=== PATIENT | female | born 1985 | race Caucasian/White ===

== ENCOUNTER 2016-06-20 13:43 | Emergency (ER) | payer BC, OTHER ==
[~2016-06-20] VITALS: Ht 157.5 cm; Wt 69.7 kg
[~2016-06-20 13:43] MED LIST: MTR600X PO; PRENTAB26 PO
[2016-06-20 13:53] VITALS: BP 143/86; PULSE 87; TEMP 36.7; O2SAT 97; Ht 157.5 cm; Wt 69.7 kg
[2016-06-20] MEDS ORDERED: VEDO1INJ (14:30)
[2016-06-20] MEDS ORDERED: PRT/20 PO (14:30)
[2016-06-20] MEDS ORDERED: HYDR-5688 PO (14:30)
[2016-06-20] MEDS ORDERED: NORGTAB36 PO (14:30)
[2016-06-20] MEDS ORDERED: FOLI5CAP (14:30)
[2016-06-20] MEDS ORDERED: MTH25 PO (14:32)
[2016-06-20] MEDS ORDERED: [UNRECOGNIZED DRUG - CODE] TOP (14:55)
--- NOTE | 2016-06-20 14:56 | EMERGENCY ROOM VISIT NOTE ---
ED Visit Note First contact with patient: 14:07 CHIEF COMPLAINT: Rash on face and neck 2 weeks HISTORY OF PRESENT ILLNESS: Patient is a 31-year-old white female with past medical history significant for hypertension, GERD, Crohn's disease and ulcerative colitis who presents to the emergency department for evaluation of a rash on her face. She states her symptoms started with small, red/white bumps on her forehead about 2 weeks ago. In the last couple of days her symptoms have spread to her chin, behind her ears, neck and upper chest. She states that they're slightly itchy, "burny" but not hot or particularly painful. She has not really done anything for her symptoms. She was not sure what she could apply to it topically and also did not want to make anything worse. She has not been wearing makeup. She denies any changes in her medications, clothes, detergents, cosmetic products, or foods. She reports that about 2 or 3 weeks prior to the onset of her symptoms, she was finally tapered off of her steroids , which she had been on since January. REVIEW OF SYSTEMS: Review of systems as per HPI. All other systems reviewed were negative. 10 systems reviewed. PMH: Electronic medical records are reviewed and summarized as above/below. See Problem List. SOCIAL HISTORY: Patient lives at home with her family. Smoker. PHYSICAL EXAM: Vital Signs: Reviewed Nurse's notes. CONSTITUTIONAL: Patient is a well-appearing 31-year-old white female who is awake and alert and in no acute distress. HEENT: Normocephalic, atraumatic. Pupils equal, round, reactive to light and accommodation. EOMs intact without nystagmus. Sclera are anicteric. Tympanic membranes intact, with normal landmarks. External canals are clear. Oral and nasopharynx are clear. Mucous membranes are moist. INTEGUMENTARY: Examination of patient's rash show a papular, slightly excoriated /skilled over rash, without significant erythema. She does have erythema involving the skin on her neck, chin, and posterior to the ears bilaterally. She has very small, nodular papules, there is no increased warmth, fluctuance or tenderness to palpation. No pustules, vesicles or hemorrhagic lesions are noted. Neck: No lymphadenopathy. EMERGENCY DEPARTMENT COURSE: The patient was seen and evaluated as above. After some research and review of some dermatologic pictures, her presentation appears more consistent with I suspect a corticosteroid induced acne, as her symptoms began after she tapered off of the prednisone which she had been on for several months due to her rheumatologic disease. Rash does not appear consistent with a contact dermatitis or allergic reaction. Does not appear consistent with pustular acne. Certainly something else related to her rheumatologic diseases could be considered. She does have an appointment with her offline editor next week, in addition to her other specialists including gastroenterology and pain management. She was given a prescription to try a topical retinoid to the area. It was not felt that prednisone or antibiotics were appropriate given the presentation and her other medical conditions. If necessary, she was encouraged to follow-up with dermatology for further care and evaluation of her symptoms. Problem List Medical Problems: (1) Ankylosing spondylitis Status: Chronic (2) Chronic pain syndrome Status: Chronic (3) Crohn's disease Status: Chronic (4) GERD (gastroesophageal reflux disease) Status: Chronic (5) Hypertension Nos Status: Chronic Surgical Problems: (1) section Status: Resolved Current/Historical Medications Scheduled Adapalene (Adapalene), 1 APPLN TOP HS Duloxetine Hcl (Cymbalta), 1 CAP PO DAILY Multivit/Min/Iron/Fol Ac/Pren ( Vitamin), 1 TAB PO DAILY Norgestimate-Ethinyl Estradiol (Ortho Tri-Cyclen), 1 TAB PO DAILY Pantoprazole (Protonix), 20 MG PO DAILY Scheduled PRN Hydrocodone/Acetaminophen 5MG/325MG ([place] 5MG/325MG), 1 TAB PO TID PRN for Pain Miscellaneous Medications Clonazepam (Clonazepam) Folic Acid (Folic Acid) Hydrochlorothiazide (Hydrochlorothiazide) Methotrexate (Trexall ), 5 MG PO Vedolizumab (Entyvio) Allergies Coded Allergies: Penicillins (Verified Allergy, Mild, RASH, 06/03/10) Vital Signs Date Time Temp Pulse Resp B/P Pulse Ox O2 Delivery O2 Flow Rate FiO2 06/20/16 13:53 36.7 87 18 143/86 97 Room Air Departure Information Impression Primary Impression: Skin disease due to corticosteroid therapy Prescriptions Adapalene (ADAPALENE) 0.1 % Gel 1 APPLN TOP HS, #45 GM Apply a pea-sized amount of gel the affected areas at bedtime after cleansing. Prov: Selina Gil PA 06/20/16 Referrals Ruth Phillips C.R.N.P (PCP) Patient Instructions A Signature Page, My [facility] Additional Instructions Continue current medications. Adapalene gel : Apply a thin layer to affected area at bedtime. If excessive dryness occur, use every other day. Follow up with your specialists as you have scheduled, and discuss your symptoms with them. Follow up with dermatology if symptoms are not improving.
[2017-03-04] MEDS ORDERED: PANT40TA PO (09:43)
[2017-03-04] MEDS ORDERED: KLN5X PO (14:30)
[2017-03-04] MEDS ORDERED: HYDR25TA5 PO (14:30)
[2017-03-04] MEDS ORDERED: DULO60CA44 PO (14:30)
== END 2016-06-20 15:04 | disposition home or self-care (01) ==
LOC: C.EDB 13:49 → C.EDD 15:04
DX: L98.9 Disorder of the skin and subcutaneous tissue, unspecified (principal); F17.200 Nicotine dependence, unspecified, uncomplicated; K21.9 Gastro-esophageal reflux disease without esophagitis; I10 Essential (primary) hypertension; K50.90 Crohn's disease, unspecified, without complications; G89.4 Chronic pain syndrome

== ENCOUNTER 2016-06-30 08:55 | Emergency (ER) | payer OTHER, BC ==
[~2016-06-30] VITALS: Ht 157.5 cm; Wt 68.5 kg
[~2016-06-30 08:55] MED LIST changes: +FOLI5CAP; +HYDR-5688 PO; +MTH25 PO; -MTR600X PO; +NORGTAB36 PO; +PRT/20 PO; +VEDO1INJ; +[UNRECOGNIZED DRUG - CODE] TOP
[2016-06-30 09:06] VITALS: TEMP 36.8; Ht 157.5 cm; Wt 68.5 kg
[2016-06-30] MEDS ORDERED: METH0.4I3 INJ (09:43)
[2016-06-30] MEDS ORDERED: OPTIRAY 320 IV PRN (10:15)
[2016-06-30 10:27] VITALS: BP 136/83; PULSE 89; O2SAT 99
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
[2017-03-04] MEDS ORDERED: PANT40TA PO (09:43)
[2017-03-04] MEDS ORDERED: KLN5X PO (14:30)
[2017-03-04] MEDS ORDERED: HYDR25TA5 PO (14:30)
[2017-03-04] MEDS ORDERED: DULO60CA44 PO (14:30)
== END 2016-06-30 10:29 | disposition home or self-care (01) ==
LOC: C.EDB 08:56
DX: M54.6 Pain in thoracic spine (principal); R10.9 Unspecified abdominal pain; V44.5XXA Car driver injured in collision with heavy transport vehicle or bus in traffic accident, initial encounter; G89.29 Other chronic pain; K50.90 Crohn's disease, unspecified, without complications; K21.9 Gastro-esophageal reflux disease without esophagitis; F17.200 Nicotine dependence, unspecified, uncomplicated; Z79.899 Other long term (current) drug therapy

== ENCOUNTER → 2016-12-31 | Outpatient (CLI) | payer BC, OTHER ==
[~2016-12-31] MED LIST changes: +BCPILLS PO; +DULO60CA44 PO; -FOLI5CAP; +HYDR25TA5 PO; +KLN5X PO; +METH0.4I3 INJ; -MTH25 PO; +MULT-506 PO; +OXY/15 PO; +PANT40TA PO; -PRT/20 PO; -[UNRECOGNIZED DRUG - CODE] TOP
--- NOTE | 2016-12-31 10:58 | DIAGNOSTIC IMAGING REPORT ---
ABDOMEN COMPLETE (US) CLINICAL HISTORY: 31 years-old Female presenting with AB PAIN, BILATERAL SACROILIITIS. TECHNIQUE: Real-time grayscale and limited color Doppler ultrasound imaging of the abdomen was performed. COMPARISON: None. FINDINGS: Pancreas: Visualized portions of the pancreatic head and body normal. Liver: Normal echogenicity and echotexture. The liver measures 14.8 cm in maximal sagittal dimension. Biliary: No intrahepatic biliary ductal dilatation. Common bile duct measures up to 4 mm in diameter. Gallbladder: Normal in appearance without evidence of gallstones, gallbladder wall thickening, or pericholecystic fluid. Spleen: Normal in echogenicity and size, measuring 11.6 cm in length. Kidneys: Normal in size and echogenicity. Right kidney measures 11 cm, and the left kidney measures 10.4 cm. No hydronephrosis. Vasculature: Visualized portions of the IVC and abdominal aorta normal. Ascites: None. IMPRESSION: Normal abdominal ultrasound. No biliary ductal dilatation. Electronically signed by: Roel Escobedo M.D. 12/31/2016 10:57 AM Dictated Date/Time: 12/31/2016 10:54 AM
== END | disposition home or self-care (01) ==
LOC: C.ULTR 09:52
PROVIDERS: ATTEND Internal Medicine Gastroenterology
DX: K50.10 Crohn's disease of large intestine without complications (principal); M46.1 Sacroiliitis, not elsewhere classified; R10.9 Unspecified abdominal pain

== ENCOUNTER 2017-03-04 16:49 | Emergency (ER) | payer BC, OTHER ==
[~2017-03-04] VITALS: Ht 157.5 cm; Wt 53.1 kg
[~2017-03-04 16:49] MED LIST changes: -BCPILLS PO; -MULT-506 PO; -OXY/15 PO
[2017-03-04 16:54] VITALS: TEMP 36.6; Ht 157.5 cm; Wt 53.1 kg
--- NOTE | 2017-03-04 17:19 | EMERGENCY ROOM VISIT NOTE ---
History First contact with patient: 17:01 Chief Complaint: CHEST PAIN Stated Complaint: CHEST PAIN, DIFFICULTY BREATHING Nursing Triage Summary: pt reports started with cp and sob this AM , increased sob on exertion History of Present Illness The patient is a 32 year old female who presents to the Emergency Room with complaints of chest pain which started this morning when she woke up. The patient states that she has had pain in the center of her chest which radiates upward. She has had associated difficulty breathing and states that her pain worsens with a deep breath. The pain has been constant since it started this morning. She denies any nausea, vomiting, palpitations, lightheadedness or syncope. She rates her discomfort an 8/10. She took Dwight without relief. The patient reports a history of Crohn's and ankylosing spondylitis. She denies any cardiac history. She does take control pills and is a smoker. She denies any recent travel. She denies any personal or family history of blood clots. Review of Systems A complete 10 point review of systems was reviewed with the patient with pertinent positives and negatives as per history of present illness. All else were negative. Past Medical/Surgical History Medical Problems: (1) Ankylosing spondylitis (2) Chronic pain syndrome (3) Crohn's disease (4) GERD (gastroesophageal reflux disease) (5) Hypertension Nos Surgical Problems: (1) section Family History No pertinent family history Social History Smoking Status: Current Every Day Smoker Marital Status: single Current/Historical Medications Scheduled Control Pills ( Control Pills), 1 TAB PO DAILY Duloxetine Hcl (Cymbalta), 60 MG PO DAILY Hydrochlorothiazide (Hydrochlorothiazide), 25 MG PO DAILY Multivitamin (Multivitamin), 1 TAB PO DAILY Pantoprazole (Protonix), 40 MG PO DAILY Scheduled PRN Clonazepam (Clonazepam), 0.5 MG PO BID PRN for Anxiety Oxycodone Hcl (Oxycodone Hcl), 15 MG PO QID PRN for Pain Physical Exam Vital Signs Date Time Temp Pulse Resp B/P (MAP) Pulse Ox O2 Delivery O2 Flow Rate FiO2 03/04/17 19:10 88 20 138/67 98 Room Air 03/04/17 18:05 92 18 115/72 95 Room Air 03/04/17 17:14 100 03/04/17 16:54 36.6 104 20 121/79 98 Room Air Physical Exam VITALS: Vitals are noted on the nurse's note and reviewed by myself. Vital signs stable. GENERAL: This is a 32-year-old female, slightly anxious appearing, holding her hand to the center of her chest, well-developed well-nourished. HEENT: Normocephalic. PERRLA. EOMI. Tympanic membranes within normal limits bilaterally. Mucous membranes moist. Neck is supple without nuchal rigidity. HEART: Regular rate and rhythm without murmurs gallops or rubs. LUNGS: Clear to auscultation bilaterally without wheezes, rales or rhonchi. No retractions or accessory muscle use. MUSCULOSKELETAL: There is reproducible tenderness over the upper sternum. NEURO: Patient was alert and oriented to person place and time. Medical Decision & Procedures ER Provider Diagnostic Interpretation: CT ANGIOGRAM OF THE CHEST FINDINGS: No pathologically enlarged axillary mediastinal or hilar lymph nodes were visualized. There was no evidence of thoracic aortic dilatation. There were no pulmonary artery filling defects to indicate acute pulmonary embolism. Of note, is that evaluation is limited from a technical standpoint due to respiratory motion artifact. No pleural effusions are visualized. Evaluation limited due to respiratory motion artifact. There is no lobar consolidation. There are bibasal atelectatic changes. IMPRESSION: 1. Examination somewhat limited due to respiratory motion artifact. No pulmonary emboli identified. 2. No evidence of focal pulmonary consolidation 3. Given the somewhat limited nature of this examination, if there is a strong clinical concern over the presence of acute pulmonary embolism, then correlation with serial leg ultrasonography should be considered. Laboratory Results 03/04/17 17:10 Red Blood Count 4.55, Mean Corpuscular Volume 87.7, Mean Corpuscular Hemoglobin 30.3, Mean Corpuscular Hemoglobin Concent 34.6, Mean Platelet Volume 10.8, Neutrophils (%) (Auto) 60.6, Lymphocytes (%) (Auto) 28.0, Monocytes (%) (Auto) 9.7, Eosinophils (%) (Auto) 1.5, Basophils (%) (Auto) 0.1, Neutrophils # (Auto) 4.10, Lymphocytes # (Auto) 1.90, Monocytes # (Auto) 0.66, Eosinophils # (Auto) 0.10, Basophils # (Auto) 0.01 03/04/17 17:10 Test 03/04/17 17:10 03/04/17 17:18 White Blood Count 6.78 K/uL (4.8-10.8) Red Blood Count 4.55 M/uL (4.2-5.4) Hemoglobin 13.8 g/dL (12.0-16.0) Hematocrit 39.9 % (37-47) Mean Corpuscular Volume 87.7 fL (80-100) Mean Corpuscular Hemoglobin 30.3 pg (25-34) Mean Corpuscular Hemoglobin Concent 34.6 g/dl (32-36) Platelet Count 333 K/uL (130-400) Mean Platelet Volume 10.8 fL (7.4-10.4) Neutrophils (%) (Auto) 60.6 % Lymphocytes (%) (Auto) 28.0 % Monocytes (%) (Auto) 9.7 % Eosinophils (%) (Auto) 1.5 % Basophils (%) (Auto) 0.1 % Neutrophils # (Auto) 4.10 K/uL (1.4-6.5) Lymphocytes # (Auto) 1.90 K/uL (1.2-3.4) Monocytes # (Auto) 0.66 K/uL (0.11-0.59) Eosinophils # (Auto) 0.10 K/uL (0-0.5) Basophils # (Auto) 0.01 K/uL (0-0.2) RDW Standard Deviation 41.3 fL (36.4-46.3) RDW Coefficient of Variation 12.8 % (11.5-14.5) Immature Granulocyte % (Auto) 0.1 % Immature Granulocyte # (Auto) 0.01 K/uL (0.00-0.02) Prothrombin Time 10.6 SECONDS (9.0-12.0) Prothromb Time International Ratio 1.0 (0.9-1.1) Activated Partial Thromboplast Time 33.3 SECONDS (21.0-31.0) Partial Thromboplastin Ratio 1.3 Anion Gap 5.0 mmol/L (3-11) Est Creatinine Clear Calc Drug Dose 120.5 ml/min Estimated GFR () 146.8 Estimated GFR (Non- 126.6 BUN/Creatinine Ratio 16.5 (10-20) Calcium Level 9.3 mg/dl (8.5-10.1) Total Bilirubin 0.4 mg/dl (0.2-1) Aspartate Amino Transf (AST/SGOT) 26 U/L (15-37) Alanine Aminotransferase (ALT/SGPT) 36 U/L (12-78) Alkaline Phosphatase 65 U/L (45-117) Total Protein 7.9 gm/dl (6.4-8.2) Albumin 3.7 gm/dl (3.4-5.0) Globulin 4.2 gm/dl (2.5-4.0) Albumin/Globulin Ratio 0.9 (0.9-2) Chemistry Specimen Hemolysis Bedside Troponin I < 0.030 ng/ml (0-0.045) ECG Rate (beats per minute): 98 Rhythm: normal sinus Findings: no acute ischemic change, no ectopy Comparison ECG Date: no prior available ED Course The patient was evaluated as above. Labs were drawn and IV access was obtained. CT of the chest was performed and read by radiology as above. Patient was reevaluated and findings were discussed. I recommended ultrasound of the legs. Patient was given 15 mg Toradol for pain. Patient states that she would like to leave and refused ultrasound of the legs. I discussed this with the patient. She wishes to leave. She will be discharged home. Discharge instructions were reviewed with the patient. The patient verbalized understanding of my assessment and treatment plan and was discharged home in good condition. Medical Decision Differential diagnosis includes acute coronary syndrome, pulmonary embolism, pneumothorax, pericarditis, myocarditis, endocarditis, anxiety, musculoskeletal pain, GERD, costochondritis, pneumonia, among others. The patient is a 32-year-old female who presents today complaining of substernal chest pain. Labs revealed no leukocytosis, anemia or concerning electrolyte abnormalities. Troponin was not elevated. Given that the patient is a smoker and takes control pills, along with her initial tachycardia, I did feel that CT of the chest for PE was warranted. This was performed and read by radiology with no obvious pulmonary embolism identified. However, there was some artifact and the radiologist to suggest an ultrasound of the legs to rule out DVT. I did order this and recommended to the patient, however she stated that she felt much better after the Toradol and would like to go home. The benefits/risks of performing the ultrasound versus discharged home without the ultrasounds were discussed with the patient and she still prefers to be discharged home. I do feel that the patient is capable of making this decision and she displayed understanding of the risks of discharge without this testing. Patient was instructed to take anti-inflammatories at home, as this may be secondary to costochondritis. She was encouraged to follow-up with her primary care provider for further evaluation of her chest pain. The patient's case was reviewed with Dr. Myers, ED attending physician, who agreed with my assessment and treatment plan. Based on the patient's presentation and work up, I feel the patient is stable for outpatient treatment. The patient was educated to return to the emergency department for any worsening of their current condition or new/concerning symptoms. She will follow up with her PCP. Medication Reconcilliation Current Medication List: was personally reviewed by me Blood Pressure Screening Patient's blood pressure: Normal blood pressure Impression Primary Impression: Substernal precordial chest pain Departure Information Dispostion Home / Self-Care Condition GOOD Referrals Ruth Phillips C.R.N.P (PCP) Patient Instructions My [facility] Additional Instructions You have been treated in the Emergency Department for your Chest Pain. Laboratory results and Imaging Studies have ruled out any cardiac or pulmonary cause of your chest pain. Ibuprofen, 400 mg every 6 hours for the next few days until symptoms have improved. You should schedule a follow-up appointment with your Primary Care Provider in 2 -3 days for further evaluation from today's Emergency Department visit. Return to the Emergency Department if your current symptoms worsen despite treatment course outlined above, or if you develop any of the following symptoms : worsening chest pain, associated jaw/arm pain, nausea, dizziness, shortness of breath, bloody cough, or fainting.
[2017-03-04 17:23] LABS: BASO % 0.1 %; BASO ABS # 0.01 K/uL (0-0.2); COMPLETE YES; EOS % 1.5 %; HEMATOCRIT 39.9 % (37-47); IG% 0.1 %; MEAN CELL VOLUME 87.7 fL (80-100); MEAN CORPUSCULAR HEMOGLOBIN 30.3 pg (25-34); MEAN CORPUSCULAR HGB CONC 34.6 g/dl (32-36); MEAN PLATELET VOLUME 10.8 fL (7.4-10.4); MONO % 9.7 %; NEUT % 60.6 %; PLATELET COUNT 333 K/uL (130-400); RED BLOOD COUNT 4.55 M/uL (4.2-5.4); WHITE BLOOD COUNT 6.78 K/uL (4.8-10.8)
[2017-03-04] MEDS ORDERED: OPTIRAY 320 IV PRN (17:30)
[2017-03-04 17:43] LABS: PARTIAL THROMBOPLASTIN RATIO 1.3; PROTHROMBIN TIME (PATIENT) 10.6 SECONDS (9.0-12.0)
[2017-03-04] MEDS ORDERED: OXY/15 PO (17:43)
[2017-03-04] MEDS ORDERED: BCPILLS PO (17:43)
[2017-03-04] MEDS ORDERED: MULT-506 PO (17:43)
[2017-03-04 17:51] LABS: BUN/CREATININE RATIO 16.5 (10-20); CALCIUM 9.3 mg/dl (8.5-10.1); CREATININE 0.54 mg/dl (0.60-1.20); POTASSIUM 3.4 mmol/L (3.5-5.1)
[2017-03-04 17:55] LABS: ALB/GLOB RATIO 0.9 (0.9-2)
--- NOTE | 2017-03-04 18:22 | DIAGNOSTIC IMAGING REPORT ---
CT ANGIOGRAM OF THE CHEST CLINICAL HISTORY: Atypical chest pain COMPARISON STUDY: No previous studies for comparison. TECHNIQUE: Following the IV administration of 63 mL of Optiray-320, CT angiogram of the thorax was performed from the thoracic inlet to the lung bases utilizing the pulmonary embolus protocol. Images are reviewed in the axial, sagittal, and coronal planes. IV contrast was administered without complication. MIP imaging was performed. A dose lowering technique was utilized adhering to the principles of ALARA. CT DOSE: 198.62 mGy.cm FINDINGS: No pathologically enlarged axillary mediastinal or hilar lymph nodes were visualized. There was no evidence of thoracic aortic dilatation. There were no pulmonary artery filling defects to indicate acute pulmonary embolism. Of note, is that evaluation is limited from a technical standpoint due to respiratory motion artifact. No pleural effusions are visualized. Evaluation limited due to respiratory motion artifact. There is no lobar consolidation. There are bibasal atelectatic changes. IMPRESSION: 1. Examination somewhat limited due to respiratory motion artifact. No pulmonary emboli identified. 2. No evidence of focal pulmonary consolidation 3. Given the somewhat limited nature of this examination, if there is a strong clinical concern over the presence of acute pulmonary embolism, then correlation with serial leg ultrasonography should be considered. Electronically signed by: Leon Pina M.D. 03/04/2017 6:21 PM Dictated Date/Time: 03/04/2017 6:17 PM
[2017-03-04] MEDS ORDERED: KETOROLAC TROMETHAMINE 15 MG/ML VIAL IV STA (18:47)
[2017-03-04] MEDS ORDERED: KETOROLAC TROMETHAMINE 30 MG/ML VIAL ONE (18:54)
[2017-03-04 19:10] VITALS: BP 138/67; PULSE 88; O2SAT 98
== END 2017-03-04 19:29 | disposition home or self-care (01) ==
LOC: C.EDB 16:52 → C.EDA 19:29
DX: R07.2 Precordial pain (principal); K50.90 Crohn's disease, unspecified, without complications; M45.9 Ankylosing spondylitis of unspecified sites in spine; G89.29 Other chronic pain; K21.9 Gastro-esophageal reflux disease without esophagitis; I10 Essential (primary) hypertension; F17.210 Nicotine dependence, cigarettes, uncomplicated; Z79.3 Long term (current) use of hormonal contraceptives; Z79.899 Other long term (current) drug therapy

== ENCOUNTER → 2017-10-04 | Outpatient (CLI) | payer OTHER ==
[~2017-10-04] MED LIST changes: +BCPILLS PO; -HYDR-5688 PO; -METH0.4I3 INJ; +MULT-506 PO; -NORGTAB36 PO; +OXY/15 PO; -PRENTAB26 PO; -VEDO1INJ
--- NOTE | 2017-10-04 09:19 | DIAGNOSTIC IMAGING REPORT ---
ABDOMEN COMPLETE (US) HISTORY: Pain. Nausea. 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 COMPARISON: 12/31/2016 FINDINGS: Pancreas: The pancreas demonstrates a normal echotexture. Liver: Unremarkable. Gallbladder: No gallbladder wall thickening. No gallstones. Normal gallbladder wall thickness CBD: 5.5 mm Kidneys: No hydronephrosis. Spleen: Normal in size. Aorta: Normal in caliber. IVC: Patent. IMPRESSION: Trace gallbladder sludge within the gallbladder lumen. Otherwise normal study. The above report was generated using voice recognition software. It may contain grammatical, syntax or spelling errors. Electronically signed by: Mingo Kim M.D. 10/04/2017 9:18 AM Dictated Date/Time: 10/04/2017 9:16 AM
== END | disposition home or self-care (01) ==
LOC: C.ULTR 08:45
PROVIDERS: ATTEND Internal Medicine Gastroenterology
DX: R10.9 Unspecified abdominal pain (principal); K82.8 Other specified diseases of gallbladder; K50.10 Crohn's disease of large intestine without complications; Z88.0 Allergy status to penicillin; Z88.8 Allergy status to other drugs, medicaments and biological substances; Z88.6 Allergy status to analgesic agent

== ENCOUNTER → 2017-10-27 | Outpatient (CLI) | payer OTHER ==
[~2017-10-27] MED LIST changes: +SINCALIDE IV ONE; +SODIUM CHLORIDE 0.9% IV ONE
--- NOTE | 2017-10-27 12:40 | DIAGNOSTIC IMAGING REPORT ---
NUCLEAR MEDICINE HEPATOBILIARY SCAN WITH EJECTION FRACTION HISTORY: Generalized abdominal PAIN,GALLBLADDER SLUDGE ON US COMPARISON: Abdominal ultrasound 10/04/2017. TECHNIQUE: Immediately following the intravenous administration of 5.2 mCi Tc-99m Choletec, dynamic anterior abdominal imaging pre/post 1 mcg of Kinevac was performed. FINDINGS: Uniform hepatic tracer accumulation is shown. Prompt intrahepatic biliary excretion is seen. The gallbladder, common bile duct, and small bowel are all visualized by 60 minutes. This appearance represents the normal sequence of biliary excretion. The gall bladder ejection fraction following administration of Kinevac was 83% (normal >35%). IMPRESSION: 1. No evidence for cystic duct obstruction. 2. Gallbladder ejection fraction calculated to be 83 %. Electronically signed by: David Meredith M.D. 10/27/2017 12:38 PM Dictated Date/Time: 10/27/2017 12:34 PM
== END | disposition home or self-care (01) ==
LOC: C.NUCL 09:53
PROVIDERS: ATTEND Internal Medicine Gastroenterology
DX: R10.9 Unspecified abdominal pain (principal); K87 Disorders of gallbladder, biliary tract and pancreas in diseases classified elsewhere